=== PATIENT | male | born 1990 | race Caucasian/White ===

== ENCOUNTER 2017-05-11 16:29 | Emergency (ER) | payer SELFPAY ==
[2017-05-11 16:43] VITALS: BP 123/77
--- NOTE | 2017-05-11 16:57 | UC ---
Lower Extremity/Ankle HPI - HPI Summary HPI Summary: 26 Y/O male presents with L wrist, L knee, and L ankle pain after injury at work. States tried to catch a cooler that was falling and then fell resulting in the injuries mentioned. Denies LOC, dyspnea, or other complaints. Medical history and medications reviewed. Discussed smoking cessation with Mr Jara and information for [place] provided. - History of Current Complaint Hx Obtained From: Patient Onset/Duration: Sudden Onset Severity Initially: Moderate Severity Currently: Moderate Pain Intensity: 7 Pain Scale Used: 0-10 Numeric Aggravating Factor(s): Standing, Ambulation Alleviating Factor(s): Rest, Ice Able to Bear Weight: Yes Related History: Occupational Injury - Injuries sustained at work - Risk Factors Gout Risk Factors: Negative DVT Risk Factors: Negative Septic Arthritis Risk Factor: Negative <Patsy Dickerson - Last Filed: 05/11/17 16:52> <Regine Aldana - Last Filed: 05/11/17 17:43> - History of Current Complaint Chief Complaint: UCLowerExtremity Stated Complaint: LEG INJURY (WC) Time Seen by Provider: 05/11/17 16:43 - Allergies/Home Medications Allergies/Adverse Reactions: Allergies Allergy/AdvReac Type Severity Reaction Status Date / Time No Known Allergies Allergy Verified 12/07/14 14:55 Home Medications: Home Medications Ibuprofen [Advil] 400 mg PO 05/11/17 [History] PMH/Surg Hx/FS Hx/Imm Hx Previously Healthy: Yes - Surgical History Surgical History: None - Social History Alcohol Use: Rare Substance Use Type: None Smoking Status (MU): Light Every Day Tobacco Smoker Type: Cigarettes <Patsy Dickerson - Last Filed: 05/11/17 16:52> Review of Systems Constitutional: Negative Skin: Bruising Eyes: Negative ENT: Negative Respiratory: Negative Cardiovascular: Negative Gastrointestinal: Negative Genitourinary: Negative Motor: Negative Neurovascular: Negative Musculoskeletal: Negative Neurological: Negative Psychological: Negative Is Patient Immunocompromised?: No All Other Systems Reviewed And Are Negative: Yes <Patsy Dickerson - Last Filed: 05/11/17 16:52> Physical Exam Triage Information Reviewed: Yes Appearance: Well-Appearing Vital Signs: Initial Vital Signs Temp 100.0 F 05/11/17 16:37 Pulse 91 05/11/17 16:37 Resp 18 05/11/17 16:37 BP 123/77 05/11/17 16:37 Pulse Ox 97 05/11/17 16:37 Vital Signs Reviewed: Yes Eye Exam: Normal Neck exam: Normal Neck: Positive: Supple Respiratory Exam: Normal Respiratory: Positive: Lungs clear, Normal breath sounds, No respiratory distress Cardiovascular Exam: Normal Cardiovascular: Positive: RRR Abdominal Exam: Normal Abdomen Description: Positive: Nontender Bowel Sounds: Positive: Present Musculoskeletal Exam: Normal Musculoskeletal: Positive: Strength Intact Neurological Exam: Normal Neurological: Positive: Alert Psychological Exam: Normal Skin Exam: Normal <Patsy Dickerson - Last Filed: 05/11/17 16:52> Vital Signs: Initial Vital Signs Temp 100.0 F 05/11/17 16:37 Pulse 91 05/11/17 16:37 Resp 18 05/11/17 16:37 BP 123/77 05/11/17 16:37 Pulse Ox 97 05/11/17 16:37 <Regine Aldana - Last Filed: 05/11/17 17:43> Lower Extremity Course/Dx - Differential Dx/Diagnosis Differential Diagnosis/HQI/PQRI: Contusion, Fracture (Closed), Sprain, Strain Provider Diagnoses: Contusions to L wrist, L knee, L ankle <Patsy Dickerson - Last Filed: 05/11/17 16:52> Discharge <Patsy Dickerson - Last Filed: 05/11/17 16:52> <Regine Aldana - Last Filed: 05/11/17 17:43> - Discharge Plan Condition: Stable Disposition: HOME Patient Education Materials: Contusion in Adults (ED) Referrals: Non Staff,Doctor [Medical Doctor] - Kenia Trevino MD [Medical Doctor] - Additional Instructions: Your x-rays were negative for fractures or other injuries. You may take Ibuprofen 600mg every 8 hours as needed. Apply ice and heat as needed for comfort. Follow up with Dr Trevino (Orthopedics) if swelling increases or pain does not improve over the next week. A knee brace has been provided for support. Attestation Statement User Type: Provider - I was available for consult. This patient was seen by the [facility]. The patient was not presented to, seen by, or examined by me. -Karin <Regine Aldana - Last Filed: 05/11/17 17:43>
--- NOTE | 2017-05-11 17:25 | RAD ---
Indication: Left knee injury. 4 views of left knee demonstrates no fracture. No joint effusion is identified. IMPRESSION: Unremarkable left knee.
--- NOTE | 2017-05-11 17:25 | RAD ---
Indication: Left ankle injury. 3 views of left ankle demonstrates no fracture. No joint effusion is noted. IMPRESSION: No fracture of the left ankle is noted.
--- NOTE | 2017-05-11 17:26 | RAD ---
Indication: Left wrist pain and injury 3 views of the wrist demonstrates no fracture. No other bone or joint abnormality is identified. IMPRESSION: NO FRACTURE OF THE WRIST IS NOTED.
== END 2017-05-11 17:45 | disposition home or self-care (01) ==
LOC: UCEAST 16:29
DX: S60.212A Contusion of left wrist, initial encounter (principal); S80.02XA Contusion of left knee, initial encounter; S90.02XA Contusion of left ankle, initial encounter; W18.39XA Other fall on same level, initial encounter; Y92.9 Unspecified place or not applicable; F17.210 Nicotine dependence, cigarettes, uncomplicated
CPT/HCPCS: 99211; G0463